=== PATIENT | male | born 1980 | race Caucasian/White ===

== ENCOUNTER 2018-05-09 16:13 | Emergency (ER) | payer OTHER ==
[2018-05-09 16:46] LABS: BASOPHILS # (AUTO) 0.1 10^3/uL (0.0-0.1); BASOPHILS % (AUTO) 0.8 %; EOSINOPHILS # (AUTO) 0.1 10^3/uL (0.0-0.7); EOSINOPHILS % (AUTO) 0.8 %; HGB - HEMOGLOBIN 13.3 g/dL (14.0-18.0); LYMPHOCYTES # (AUTO) 2.6 10^3/uL (1.5-3.5); LYMPHOCYTES % (AUTO) 29.9 %; MEAN CORPUSCULAR HGB CONC 33.2 g/dL (32.0-36.0); MEAN CORPUSCULAR VOLUME 78.4 fL (80.0-94.0); MEAN PLATELET VOLUME 7.6 fL (7.4-11.4); MONOCYTES # (AUTO) 0.5 10^3/uL (0.0-1.0); MONOCYTES % (AUTO) 6.2 %; NEUTROPHILS # (AUTO) 5.4 10^3/uL (1.5-6.6); NEUTROPHILS % (AUTO) 62.3 %; PLT - PLATELET COUNT 322 10^3/uL (130-450); RED BLOOD COUNT 5.13 10^6/uL (4.70-6.10); RED CELL DISTRIBUTION WIDTH 13.7 % (12.0-15.0); WHITE BLOOD COUNT 8.7 x10^3/uL (4.8-10.8)
[2018-05-09] MEDS ORDERED: LABETALOL 20 MG/4 ML SYRINGE IVP STA (16:46)
--- NOTE | 2018-05-09 16:48 | ED Physician Documentation ---
PD HPI CHEST PAIN - Stated complaint Stated Complaint: CHEST PX - Chief complaint Chief Complaint: Cardiac - History obtained from History obtained from: Patient - History of Present Illness Timing - onset: Yesterday (This is a 37-year-old gentleman who at the age of 24 says he had an MD. It sounds like it was based on an echocardiogram per his description, he never had coronary angiography. He does not have a strong family history of vascular disease. For the last week he has had a pain on the inside of the left thigh, yesterday it went away but then developed sharp constant but waxing and waning chest pain radiating between the shoulder blades associated with sweatiness. It is not nearly as severe as prior MD pain. He denies shortness of breath with it. He did notice unequal upper extremity blood pressures with the right being about 180 systolic and the left being about 160 systolic.) Review of Systems Ten Systems: 10 systems reviewed and negative Constitutional: reports: Sweats. denies: Fever, Chills Cardiac: reports: Chest pain / pressure. denies: Palpitations Respiratory: denies: Dyspnea, Cough PD PAST MEDICAL HISTORY - Past Medical History Past Medical History: Yes Cardiovascular: MD - Present Medications Home Medications: Ambulatory Orders Medication Instructions Recorded Confirmed Amlodipine Besylate [Norvasc] 10 mg PO DAILY 05/09/18 05/09/18 Losartan/Hydrochlorothiazide 1 each PO DAILY 05/09/18 05/09/18 [Hyzaar 100-25 Tablet] - Allergies Allergies/Adverse Reactions: Allergies Allergy/AdvReac Type Severity Reaction Status Date / Time No Known Drug Allergies Allergy Verified 05/09/18 16:24 - Living Situation Living Situation: reports: With spouse/s.o. - Social History Does the pt drink ETOH?: No Does the pt have substance abuse?: No - Family History Family history: reports: Non contributory PD ED PE NORMAL - Vitals Vital signs reviewed: Yes - General General: Alert and oriented X 3, No acute distress - HEENT HEENT: PERRL, EOMI - Neck Neck: Supple, no meningeal sign, No bony TTP - Cardiac Cardiac: RRR, No murmur, Strong equal pulses - Respiratory Respiratory: No respiratory distress, Clear bilaterally - Abdomen Abdomen: Soft, Non tender - Back Back: No CVA TTP, No spinal TTP - Derm Derm: Normal color, Warm and dry - Extremities Extremities: No edema, No calf tenderness / cord - Neuro Neuro: Alert and oriented X 3, Normal speech Results - Vitals Vitals: Vital Signs - 24 hr 05/09/18 05/09/18 05/09/18 16:21 16:58 17:06 Temperature 36.3 C L Heart Rate 70 66 59 L Respiratory 14 14 16 Rate Blood Pressure 167/104 H 140/88 H 141/84 H O2 Saturation 98 97 97 05/09/18 05/09/18 05/09/18 17:30 17:54 18:27 Temperature Heart Rate 69 63 64 Respiratory 16 16 16 Rate Blood Pressure 133/75 H 121/66 116/65 O2 Saturation 99 98 97 05/09/18 19:00 Temperature Heart Rate 68 Respiratory 16 Rate Blood Pressure 125/69 O2 Saturation 97 Oxygen O2 Source Room air - EKG (time done) 1621 Rate: Rate (enter#) (69) Rhythm: NSR Pierce: Normal Intervals: Wide QRS (IVCD QRSd 116msec) QRS: Normal Ischemia: Normal ST segments Computer interpretation: Agree with computer - Labs Labs: Laboratory Tests 05/09/18 05/09/18 05/09/18 16:39 16:39 16:39 WBC 8.7 RBC 5.13 Hgb 13.3 L Hct 40.2 L MCV 78.4 L MCH 26.0 L MCHC 33.2 RDW 13.7 Plt Count 322 MPV 7.6 Neut # (Auto) 5.4 Lymph # (Auto) 2.6 [place] # (Auto) 0.5 Eos # (Auto) 0.1 Baso # (Auto) 0.1 Absolute Nucleated RBC 0.00 Nucleated RBC % 0.0 Sodium 134 L Potassium 3.4 L Chloride 100 L Carbon Dioxide 22 Anion Gap 12.0 BUN 20 Creatinine 0.8 Estimated GFR (MDRD) 109 Glucose 102 H Calcium 9.5 Total Bilirubin 1.0 AST 21 ALT 31 Alkaline Phosphatase 50 Troponin I < 0.04 Total Protein 8.2 Albumin 4.4 Globulin 3.8 Albumin/Globulin Ratio 1.2 Lipase 27 05/09/18 18:54 WBC RBC Hgb Hct MCV MCH MCHC RDW Plt Count MPV Neut # (Auto) Lymph # (Auto) [place] # (Auto) Eos # (Auto) Baso # (Auto) Absolute Nucleated RBC Nucleated RBC % Sodium Potassium Chloride Carbon Dioxide Anion Gap BUN Creatinine Estimated GFR (MDRD) Glucose Calcium Total Bilirubin AST ALT Alkaline Phosphatase Troponin I < 0.04 Total Protein Albumin Globulin Albumin/Globulin Ratio Lipase - Rads (name of study) CTA Chest Radiology: EMP read contemporaneously (No dissection or stenosis) PD MEDICAL DECISION MAKING - ED course ED course: This is a 37-year-old gentleman with nebulous cardiac history. States he had a heart attack at age 24 but then never had a catheterization. He presents with chest pain to the back that is subacute and worrisome for dissection especially with the asymmetric blood pressures he noted, however CT scan was negative for same. Departure - Departure Disposition: Home, Self Care Clinical Impression: Chest pain Qualifiers: Chest pain type: unspecified Qualified Code(s): R07.9 - Chest pain, unspecified Condition: Good Record reviewed to determine appropriate education?: Yes Instructions: ED Chest Pain Atypical Unkn Cause Comments: Call your doctor to arrange a follow-up appointment, make the next available appointment. In the interim, return anytime if worse or if new symptoms develop.
[2018-05-09 17:00] LABS: ALBUMIN 4.4 g/dL (3.2-5.5); ALBUMIN/GLOBULIN RATIO 1.2 (1.0-2.2); CALCIUM 9.5 mg/dL (8.5-10.3); CREATININE 0.8 mg/dL (0.6-1.2); TOTAL PROTEIN 8.2 g/dL (6.7-8.2)
--- NOTE | 2018-05-09 17:14 | XRAY Report ---
Reason: Chest Pain Procedure Date: 05/09/2018 Accession Number: [id number] / [id number] Procedure: XR - Chest 1 View X-Ray CPT Code: 99196 FULL RESULT: EXAM: CHEST RADIOGRAPHY EXAM DATE: 05/09/2018 04:57 PM. CLINICAL HISTORY: Chest Pain. COMPARISON: 05/09/2018. TECHNIQUE: 1 view. FINDINGS: Lungs/Pleura: No focal opacities evident. No pleural effusion. No pneumothorax. Mediastinum: Within exam limitations, the cardiomediastinal contour is normal. Other: None. IMPRESSION: Normal single view chest. RAD[facility]
[2018-05-09] MEDS ORDERED: IOPAMIDOL-300 100 ML VIAL ONE (17:15)
--- NOTE | 2018-05-09 18:27 | CT Report ---
Reason: Aorta Protocol, CP to back with unequal UE BPs Procedure Date: 05/09/2018 Accession Number: [id number] / [id number] Procedure: CT - ANGIO CHEST W/WO CPT Code: FULL RESULT: EXAM: CT ANGIOGRAM CHEST EXAM DATE: 05/09/2018 05:25 PM. CLINICAL HISTORY: Aorta Protocol, CP to back with unequal UE BPs. COMPARISON: None. TECHNIQUE: Routine helical imaging was performed through the chest in the pulmonary arterial phase. IV Contrast: Without and with 80 cc Isovue-300 IV. Reconstructions: Coronal 3-D MIP reconstructions.Sagittal and coronal. In accordance with CT protocol optimization, one or more of the following dose reduction techniques were utilized for this exam: automated exposure control, adjustment of mA and/or KV based on patient size, or use of iterative reconstructive technique. FINDINGS: Pulmonary Arteries: Diagnostic quality: Adequate through the segmental arteries. No evidence for acute or chronic pulmonary emboli. Main pulmonary artery is normal in size. Lungs/Pleura: No consolidation, nodules, or edema. No effusions or pneumothorax. Mediastinum: Heart size is normal. No pericardial effusion. No thoracic aortic aneurysm or dissection. Negligible atherosclerotic plaque. Thoracic Aorta: Thoracic aorta is normal in caliber. Aortic arch branches appear patent and normal in caliber. The bilateral subclavian arteries appear symmetric in size without visualized narrowing. Upper Abdomen: Unremarkable. Other: None. IMPRESSION: 1. No thoracic aortic aneurysm or dissection. Patent bilateral aortic arch branches and subclavian arteries without asymmetry. 2. Negative for acute pulmonary embolism. 3. Clear lungs. RADIA
[2018-05-09 19:34] VITALS: BP 122/70
[2018-05-09] MEDS ORDERED: IOPAMIDOL-300 100 ML VIAL IVP ONE (21:20)
== END 2018-05-09 19:30 | disposition home or self-care (01) ==
LOC: ED 16:13
DX: R07.9 Chest pain, unspecified (principal); I45.9 Conduction disorder, unspecified; I25.2 Old myocardial infarction
CPT/HCPCS: 36415; 71045; 71275; 80053; 83690; 84484; 85025; 93005; 96374; 99284; Q9967